=== PATIENT | female | born 1965 | race Caucasian/White ===

== ENCOUNTER 2016-12-29 15:55 | Emergency (ER) | payer BC ==
[2016-12-29 16:17] VITALS: BP 152/69; PULSE 79; TEMP 98.1; BMI 37.2
[2016-12-29] MEDS ORDERED: SODIUM CHLORIDE 0.9% 1000 ML INFUS.BAG IV ONE (16:59)
--- NOTE | 2016-12-29 17:04 | PDOC ---
History of Present Illness - General History Source: Patient Exam Limitations: No Limitations - History of Present Illness Initial Comments: The patient is a 51 year old female with a significant past medical history of a fib and hypertension who presents to the emergency department today for further evaluation of lightheadedness 2 hours prior. The patient states that she was driving her car when she became lightheaded with associated blurry vision. The patient notes that the episode was approximately 25 seconds in duration. The patient described her blurry vision as a whitening sensation. She denies any tingling or numbing sensations. The patient denies fever, chills, and sweats. The patient denies nausea, vomiting, and diarrhea. The patient denies chest pain, cough, and shortness of breath. <Zack Coe - Last Filed: 12/29/16 17:17> <Adrianne Robledo - Last Filed: 12/29/16 18:08> - General Chief Complaint: Lightheaded Stated Complaint: FLUSH & BLURRED VISION FOR LESS THAN 1 MINUTE Past History <Zack Coe - Last Filed: 12/29/16 17:17> - Past Medical History Cardiac Disorders: Yes (AFIB) HTN: Yes - Psycho/Social/Smoking Cessation Hx Anxiety: No Suicidal Ideation: No Smoking History: Never smoked Have you smoked in the past 12 months: No Number of Cigarettes Smoked Daily: 0 If you are a former smoker, when did you quit?: 2009 Information on smoking cessation initiated: No Hx Alcohol Use: Yes (OCCASIONAL) Drug/Substance Use Hx: No Substance Use Type: None <Adrianne Robledo - Last Filed: 12/29/16 18:08> - Past Medical History Allergies/Adverse Reactions: Allergies Allergy/AdvReac Type Severity Reaction Status Date / Time No Known Allergies Allergy Verified 12/29/16 16:04 Home Medications: Ambulatory Orders Amlodipine Besylate [Norvasc -] 10 mg PO DAILY 10/20/13 Losartan Potassium 50 mg PO DAILY 10/20/13 Sotalol HCl [Sotalol] 40 mg PO AM 10/20/13 Sotalol HCl [Sotalol] 80 mg PO HS 10/20/13 Aspirin [Aspirin EC] 81 mg PO DAILY 12/29/16 Review of Systems - Review of Systems Able to Perform ROS?: Yes Comments:: GENERAL/CONSTITUTIONAL: No fever or chills. No weakness. HEAD, EYES, EARS, NOSE AND THROAT: (+) Blurred vision. No ear pain or discharge. No sore throat. GASTROINTESTINAL: No nausea, vomiting, diarrhea or constipation. GENITOURINARY: No dysuria, frequency, or change in urination. CARDIOVASCULAR: (+) Lightheadedness. No chest pain or shortness of breath. RESPIRATORY: No cough, wheezing, or hemoptysis. MUSCULOSKELETAL: No joint or muscle swelling or pain. No neck or back pain. SKIN: No rash NEUROLOGIC: No headache, vertigo, loss of consciousness, or change in strength/ sensation. ENDOCRINE: No increased thirst. No abnormal weight change. HEMATOLOGIC/LYMPHATIC: No anemia, easy bleeding, or history of blood clots. ALLERGIC/IMMUNOLOGIC: No hives or skin allergy. <Zack Coe - Last Filed: 12/29/16 17:17> *Physical Exam - Vital Signs Last Vital Signs Temp Pulse Resp BP Pulse Ox 98.1 F 79 16 152/69 96 12/29/16 16:03 12/29/16 16:03 12/29/16 16:03 12/29/16 16:03 12/29/16 16:03 - Physical Exam Comments: GENERAL: Awake, alert, and fully oriented, in no acute distress HEAD: No signs of trauma EYES: PERRLA, EOMI, sclera anicteric, conjunctiva clear ENT: Auricles normal inspection, nares patent, Moist mucosa NECK: Normal ROM, supple, no lymphadenopathy, JVD, or masses LUNGS: Breath sounds equal, clear to auscultation bilaterally. No wheezes, and no crackles HEART: Regular rate and rhythm, normal S1 and S2, no murmurs, rubs or gallops ABDOMEN: Soft, nontender, normoactive bowel sounds. No guarding, no rebound. No masses EXTREMITIES: Normal range of motion, no edema. No clubbing or cyanosis. No cords, erythema, or tenderness SKIN: Warm, Dry, normal turgor, no rashes or lesions noted. NEUROLOGICAL: Normal speech Mental status: The patient is oriented x3. Cranial nerves: Cranial nerves II through XII are intact Motor: The upper extremities are 5 over 5 in all muscle groups. The lower extremities are 5 over 5 in all muscle groups. Sensation: Sensation is intact to light touch throughout. Cerebellar: Dsylhs-vmthwt-iobh is normal in both upper extremities. Heel-knee- claire is normal in both lower extremities. Reflexes: 2+ and symmetric in the upper and lower extremities. Gait: Normal. Heel and toe walking are normal. Tandem gait is normal. <Nav Coeke - Last Filed: 12/29/16 17:17> - Vital Signs Last Vital Signs Temp Pulse Resp BP Pulse Ox 98.1 F 79 16 152/69 96 12/29/16 16:03 12/29/16 16:03 12/29/16 16:03 12/29/16 16:03 12/29/16 16:03 <Adrianne Robledo - Last Filed: 12/29/16 18:08> Heart Score/ECG Review - ECG Impressions Comment:: Normal sinus rhythm. Possible left atrial enlargement. Left axis deviation. Left ventricular hypertrophy. Anteroseptal infarct, age undetermined. Abnormal ECG. <Zack Coe - Last Filed: 12/29/16 17:17> ED Treatment Course - LABORATORY CBC & Chemistry Diagram: 12/29/16 17:10 12/29/16 17:10 - Medications Given in the ED: ED Medications Discontinued Medications Generic Name Dose Route Start Last Admin Trade Name Freq PRN Reason Stop Dose Admin Sodium Chloride 1,000 ml 12/29/16 16:59 12/29/16 17:10 Normal Saline - IV 12/29/16 17:00 1,000 ml ONCE ONE Administration <SaravananZack - Last Filed: 12/29/16 17:17> - LABORATORY CBC & Chemistry Diagram: 12/29/16 17:10 12/29/16 17:10 <Adrianne Robledo - Last Filed: 12/29/16 18:08> Medical Decision Making - Medical Decision Making 12/29/16 17:00 51 yo F with ho afib HTN, and h/o anxiety here with episode while driving where she felt lightheaded. noted change in vision, became white like she was about to faint, no cp no racing heart beat. no sob. lasted 25 seconds, then resolved. drank a gatorade and felt better. has not had panic attack in many years. no recent f/c/n/v. no urinary complaint.s no abd pain. now feels better. recently had a stroke workup in past when her had a stroke, had carotid dopplers which were negative. on exam awake alert NAD. lungs CTAB no wheeze no crackle. heart RRR no m/r/g. abd soft NT. ext wwp. nuero speech clear EOMI, PERRL, CN intact. VF intact. finger to nose normal. 5/5 all four ext sensation intact. differential: anemia, electrolyte abnormality, dysrhtymia, hyperthyroid, anxiety , dehydration. plan ekg fliuds labs tsh. reassess. will d/w pt pcp Ronaldo Morales 12/29/16 18:06 pt labs unremarkable. ekg sinus rhtym at 75 bpm TSH pending. given 1 L NS. pt feeling better. left message for Dr Avila., recommend followup with DR. Avila call to schedule. <Adrianne Robledo - Last Filed: 12/29/16 18:08> *DC/Admit/Observation/Transfer - Attestations Scribe Attestion: Documentation prepared by Zack Coe, acting as medical technologist blood bank for Adrianne Robledo MD. <Zack Coe - Last Filed: 12/29/16 17:17> - Discharge Dispostion Admit: No <Adrianne Robledo - Last Filed: 12/29/16 18:08> Diagnosis at time of Disposition: Pre-syncope - Discharge Dispostion Disposition: HOME Condition at time of disposition: Good - Referrals Referrals: Mick Avila MD [Primary Care Provider] - - Patient Instructions Printed Discharge Instructions: Fainting Additional Instructions: drink plenty of liquids. follow up with your primary doctor. call to schedule. return for racing heart beat, recurrent weakness numbness or any concerns.
[2016-12-29 17:26] LABS: BASOPHIL 1.5 % (0-2.0); EOSINOPHIL 3.1 % (0-4.5); MCH 28.4 pg (25.7-33.7); MCHC 32.9 g/dl (32.0-36.0); MEAN CELL VOLUME 86.2 fl (80-96); MEAN PLT VOLUME 9.5 fl (7.5-11.1); NEUTROPHILS 67.1 % (42.8-82.8); PLATELET COUNT 197 K/MM3 (134-434); RDW 13.3 % (11.6-15.6); WHITE BLOOD COUNT 9.5 K/mm3 (4.0-10.8)
[2016-12-29 17:35] LABS: ALBUMIN 3.9 g/dl (3.5-5.0); ALK PHOS 64 U/L (32-92); ANION GAP 7 (8-16); BILIRUBIN,TOTAL 0.7 mg/dl (0.2-1.0); CALCIUM 9.1 mg/dl (8.4-10.2); CO2 28 mmol/L (22-28); COCKROFT - GAULT 144.245; CREATININE 0.8 mg/dl (0.6-1.3); GLUCOSE,RANDOM 89 mg/dl (74-106); SGOT/AST 19 U/L (10-42); SGPT/ALT 24 U/L (10-40); TOT PROT 6.7 g/dl (6.4-8.3)
[2016-12-29 19:56] LABS: THYROID STIMULATING HORMONE 0.67 uIU/ml (0.358-3.74)
--- NOTE | 2017-01-01 08:58 | EKG ---
Test Reason : Blood Pressure : / mmHG Vent. Rate : 075 BPM Atrial Rate : 075 BPM P-R Int : 204 ms QRS Dur : 086 ms QT Int : 420 ms P-R-T Axes : 052 -30 056 degrees QTc Int : 469 ms NORMAL SINUS RHYTHM POSSIBLE LEFT ATRIAL ENLARGEMENT LEFT AXIS DEVIATION ANTEROSEPTAL INFARCT , AGE UNDETERMINED POSSIBLE INFERIOR INFARCT , AGE UNDETERMINED ABNORMAL ECG NO PREVIOUS ECGS AVAILABLE Confirmed by CY ALEMAN MD ([id number]) on 01/01/2017 8:58:36 AM Referred By: MD DODD Confirmed By:CY ALEMAN MD
== END 2016-12-29 18:17 | disposition home or self-care (01) ==
LOC: FER 15:55
DX: R55 Syncope and collapse (principal); I10 Essential (primary) hypertension; I48.91 Unspecified atrial fibrillation
CPT/HCPCS: 36415; 80053; 84443; 85025; 93005; 99283-25

== ENCOUNTER 2018-09-23 19:20 | Emergency (ER) | payer BC ==
[2018-09-23 19:26] VITALS: BP 155/77; PULSE 75; TEMP 97.8; BMI 39.1
--- NOTE | 2018-09-23 19:40 | PDOC ---
History of Present Illness - General History Source: Patient Exam Limitations: No Limitations - History of Present Illness Initial Comments: 09/23/18 21:29 The patient is a 53 year old female, with a significant past medical history of atrial fibrillation (compliant with medication), hypertension, and depression who presents to the emergency department with left ankle pain for the past 4 days. The patient notes she has been having this pain for the last 4 mornings but then it self resolves, however, today the pain did not go away, which promoted her arrival to the ED. The patient notes taking Advil with mild relief. The patient denies prior injuries. The patient denies chest pain, shortness of breath, headache or dizziness. The patient denies fever, chills, nausea, vomit, diarrhea or constipation. The patient denies dysuria, frequency, urgency or hematuria. Allergies: NKDA Past surgical history: None reported Social history: occasional alcohol use. Previous tobacco use (quit 8 years ago) PCP: Dr. Chávez <Lindsey Clayton - Last Filed: 09/23/18 21:29> <Erika Jacobs - Last Filed: 09/24/18 01:59> - General Chief Complaint: Pain, Acute Stated Complaint: LEFT ANKLE PAIN Time Seen by Provider: 09/23/18 19:23 Past History <Lindsey Clayton - Last Filed: 09/23/18 21:29> - Past Medical History Cardiac Disorders: Yes (AFIB) COPD: No HTN: Yes Other medical history: DEPRESSION - Suicide/Smoking/Psychosocial Hx Smoking History: Former smoker Have you smoked in the past 12 months: No Number of Cigarettes Smoked Daily: 0 If you are a former smoker, when did you quit?: 10 YEARS Information on smoking cessation initiated: No Hx Alcohol Use: Yes (OCCAS.) Drug/Substance Use Hx: No Substance Use Type: None <Erika Jacobs - Last Filed: 09/24/18 01:59> - Past Medical History Allergies/Adverse Reactions: Allergies Allergy/AdvReac Type Severity Reaction Status Date / Time No Known Allergies Allergy Verified 09/23/18 19:22 Home Medications: Ambulatory Orders Amlodipine Besylate [Norvasc -] 10 mg PO DAILY 10/20/13 Losartan Potassium 50 mg PO DAILY 10/20/13 Aspirin [Aspirin EC] 81 mg PO DAILY 12/29/16 Bupropion HCl [Wellbutrin -] 150 mg PO BID 02/27/18 Sotalol HCl [Betapace -] 80 mg PO HS 02/27/18 Sotalol HCl [Betapace] 40 mg PO AM 02/27/18 Diclofenac Sodium [Voltaren -] 75 mg PO BID PRN #14 tablet. 09/23/18 Review of Systems - Review of Systems Able to Perform ROS?: Yes Comments:: 09/23/18 21:31 GENERAL/CONSTITUTIONAL: No fever or chills. No weakness. HEAD, EYES, EARS, NOSE AND THROAT: No change in vision. No ear pain or discharge. No sore throat. CARDIOVASCULAR: No chest pain or shortness of breath. RESPIRATORY: No cough, wheezing, or hemoptysis. GASTROINTESTINAL: No nausea, vomiting, diarrhea or constipation. GENITOURINARY: No dysuria, frequency, or change in urination. MUSCULOSKELETAL: (+) left ankle pain. (+) left ankle swelling. No neck or back pain. SKIN: No rash NEUROLOGIC: No headache, vertigo, loss of consciousness, or change in strength/ sensation. ENDOCRINE: No increased thirst. No abnormal weight change. HEMATOLOGIC/LYMPHATIC: No anemia, easy bleeding, or history of blood clots. ALLERGIC/IMMUNOLOGIC: No hives or skin allergy. All Other Systems: Reviewed and Negative <Lindsey Clayton - Last Filed: 09/23/18 21:29> *Physical Exam - Vital Signs Last Vital Signs Temp Pulse Resp BP Pulse Ox 97.8 F 75 16 155/77 99 09/23/18 19:23 09/23/18 19:23 09/23/18 19:23 09/23/18 19:23 09/23/18 19:23 - Physical Exam Comments: 09/23/18 21:31 GENERAL: Awake, alert, and fully oriented, in no acute distress HEAD: No signs of trauma EXTREMITIES: (+) left lower extremities tenderness. (+) 1+ pitting edema to mid calf of the medial and lateral aspect of ankle. (+) mild generalized tenderness of medial and lateral aspects of ankle. Normal range of motion. No clubbing or cyanosis. No cords, erythema. No ecchymosis present. No deformity. NEUROLOGICAL: Cranial nerves II through XII grossly intact. Normal speech, normal gait. Distal pulses intact. No motor present. SKIN: Warm, Dry, normal turgor, no rashes or lesions noted. <Lindsey Clayton - Last Filed: 09/23/18 21:29> - Vital Signs Last Vital Signs Temp Pulse Resp BP Pulse Ox 97.8 F 75 16 155/77 99 09/23/18 19:23 09/23/18 19:23 09/23/18 19:23 09/23/18 19:23 09/23/18 19:23 <Erika Jacobs - Last Filed: 09/24/18 01:59> Moderate Sedation - Procedure Monitoring Vital Signs: Procedure Monitoring Vital Signs Temperature 97.8 F 09/23/18 19:23 Pulse Rate 75 09/23/18 19:23 Respiratory Rate 16 09/23/18 19:23 Blood Pressure 155/77 09/23/18 19:23 O2 Sat by Pulse Oximetry (%) 99 09/23/18 19:23 <Lindsey Clayton - Last Filed: 09/23/18 21:29> - Procedure Monitoring Vital Signs: Procedure Monitoring Vital Signs Temperature 97.8 F 09/23/18 19:23 Pulse Rate 75 09/23/18 19:23 Respiratory Rate 16 09/23/18 19:23 Blood Pressure 155/77 09/23/18 19:23 O2 Sat by Pulse Oximetry (%) 99 09/23/18 19:23 <Erika Jacobs - Last Filed: 09/24/18 01:59> Progress Note - Progress Note Progress Note: Documentation has been prepared under my direction and personally reviewed by me in its entirety. I attest that this documented accurately reflects all work, treatment, procedures and medical decision making performed by me. <Erika Jacobs - Last Filed: 09/24/18 01:59> Medical Decision Making - Medical Decision Making As noted above, this 53-year-old woman with a history of HTN presents with left ankle pain(mainly around the medial malleolus) for the last few days. Patient denies any trauma or overuse associated with the left lower leg. She denies any history of fracture or dislocation of the ankle. She states that she has had bilateral mild lower leg edema for a while and this has not worsened over the last few days. Pain is worse with weightbearing although the patient can ambulate. Exam as noted. Left ankle/foot x-ray performed. 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 Calcaneal spur present. No fracture or dislocation identified. Results discussed with the patient. Since the patient's symptoms of pain are centered around the medial malleolus, consistent where the most severe degenerative changes are seen on x-ray, seems likely that the etiology of the pain is related to her degenerative changes. [place] wrap applied and patient advised to use nonsteroidal anti-inflammatories until seen by her orthopedist. Prescription for diclofenac 75 mg twice a day as needed sent to her pharmacy. The patient is familiar with Dr. Slade(son has used him for orthopedic care); she also may be seen by the orthopedic staff at the [facility] where she works. The patient will be given a CD copy of her x-ray. <Erika Jacobs - Last Filed: 09/24/18 01:59> *DC/Admit/Observation/Transfer - Attestations Scribe Attestion: 09/23/18 21:32 Documentation prepared by Lindsey Clayton, acting as medical physics professor for Erika Jacobs MD <Lindsey Clayton - Last Filed: 09/23/18 21:29> <Erika Jacobs - Last Filed: 09/24/18 01:59> Diagnosis at time of Disposition: Left ankle pain Qualifiers: Chronicity: acute Qualified Code(s): M25.572 - Pain in left ankle and joints of left foot - Discharge Dispostion Disposition: HOME Condition at time of disposition: Stable - Prescriptions Prescriptions: Diclofenac Sodium [Voltaren -] 75 mg PO BID PRN #[email or web address] BRAVO Reason: Pain - Referrals Referrals: Mick Chávez MD [Primary Care Provider] - - Patient Instructions Printed Discharge Instructions: DI for Ankle Pain Additional Instructions: Elevate/ice to left ankle, especially inner surface, as much as possible for the next 2 days [place] wrap during the day until seen by orthopedist Diclofenac 75 mg twice a day as needed for pain; take with food Follow-up with your orthopedist within the next 5 days Return to ER if you have severe, persistent pain - Post Discharge Activity
== END 2018-09-23 21:14 | disposition home or self-care (01) ==
LOC: FER 19:20
DX: M25.572 Pain in left ankle and joints of left foot (principal); I10 Essential (primary) hypertension
CPT/HCPCS: 73610-TC-LT-FY; 73630-TC-LT; 99281-25

== ENCOUNTER 2021-05-23 09:00 | Emergency (ER) | payer OTHER, BC ==
[2021-05-23 09:13] VITALS: BP 117/79; PULSE 61; TEMP 98.7; BMI 35.7
[2021-05-23] MEDS ORDERED: CYCLOBENZAPRINE HCL 10 MG TABLET (FP) PO ONE (09:43)
[2021-05-23] MEDS ORDERED: CYCLOBENZAPRINE HCL 10 MG TABLET (FP) ONE (09:44)
[2021-05-23] MEDS ORDERED: KETOROLAC TROMETHAMINE 30 MG/1 ML VIAL IM ONE (10:47)
[2021-05-23] MEDS ORDERED: KETOROLAC TROMETHAMINE 30 MG/1 ML VIAL ONE (11:15)
== END 2021-05-23 19:24 | disposition home or self-care (01) ==
LOC: JERFT 09:00
PROC: 3E0233Z Introduction of Anti-inflammatory into Muscle, Percutaneous Approach (ICD-10-PCS; principal; 2021-05-23)
DX: M54.6 Pain in thoracic spine (principal); M54.50 Low back pain, unspecified; V89.2XXA Person injured in unspecified motor-vehicle accident, traffic, initial encounter
CPT/HCPCS: 72070-TC-FY; 72100-TC-FY; 99284-25